=== PATIENT | male | born 1960 | race Caucasian/White ===

== ENCOUNTER 2023-01-13 16:29 | Emergency (ER) | payer MEDICARE, OTHER ==
[~2023-01-13] VITALS: Ht 175 cm; Wt 86.0 kg
[2023-01-13 16:36] VITALS: BP 143/91
--- NOTE | 2023-01-13 17:01 | ED Upper Extremity ---
General Chief Complaint: Laceration Stated Complaint: LEFT PINKIE FINGER LAC Nursing Triage Note: PT HAS LAC TO 5TH FINGER ON L HAND FROM CUTTING SCREENS FOR WINDOWS. PT HAS LAC BETWEEN 1ST AND 2ND KNUCKLE Source: patient Exam Limitations: no limitations History of Present Illness Date Seen by Provider: January 13, 2023 Time Seen by Provider: 16:45 Initial Comments 62-year-old male presents to the ED with laceration to left posterior pinky b etween distal and proximal joints. States he was trying to cut a screen with a knife when the knife slipped and cut his finger. States the injury occurred approximately 30 minutes prior to arrival. He states his last tetanus was less than 5 years ago. Past medical history includes diabetes, hyperlipidemia, depression. Currently takes metformin, duloxetine, and atorvastatin. Allergies and Home Medications Allergies Coded Allergies: diphenhydramine (Verified Allergy, Unknown, 01/13/23) Patient Home Medication List Home Medication List Reviewed: Yes Review of Systems Constitutional: no symptoms reported Skin: other (laceration) Past Lkznoyk-Wpkgks-Jabwhv Hx Patient Social History Tobacco Use?: No Substance use?: No Alcohol Use?: No Pt feels they are or have been: No Immunizations Up To Date First/Initial COVID19 Vaccinat: YES Second COVID19 Vaccination Timbo: YES Past Medical History Surgery/Hospitalization HX: ELEVATED CHOLESTEROL, L ELBOW. BACK SURG Physical Exam Vital Signs Vital Signs - First Documented 01/13/23 16:36 Temp 36.7 Pulse 100 Resp 18 B/P (MAP) 143/91 (108) Pulse Ox 93 Capillary Refill : Less Than 3 Seconds Height, Weight, BMI Height: '" Weight: lbs. oz. kg; 28.00 BMI Method: General Appearance: WD/WN, no apparent distress Neck: supple, normal inspection Cardiovascular: regular rate, rhythm Respiratory: lungs clear, normal breath sounds, no respiratory distress, no accessory muscle use Neurologic/Psychiatric: alert, normal mood/affect Skin: normal color, warm/dry Progress/Results/Core Measures Results/Orders Vital Signs/I&O 01/13/23 16:36 Temp 36.7 Pulse 100 Resp 18 B/P (MAP) 143/91 (108) Pulse Ox 93 Blood Pressure Mean: 108 Progress Progress Note : Time: 16:59 Progress Note Patient seen and evaluated, resting comfortably in recliner, no acute distress. Laceration repaired with glue. Will place patient in splint to prevent patient from bending finger. Discharge instructions and return precautions provided. Departure Impression Primary Impression: Laceration Disposition: HOME, SELF-CARE Condition: Stable Departure-Patient Inst. Decision time for Depature: 17:00 Referrals: NO,LOCAL PHYSICIAN (PCP/Family) Primary Care Physician Patient Instructions: Laceration Repair With Glue ED Add. Discharge Instructions: Keep the wound clean and dry, you may wash your hand, but do not soak. The glue will eventually come off on its own, do not pick it off. Wear the splint to help remind you not to bend the finger. Monitor for signs of infection including redness, swelling, discolored odorous drainage. Return for signs of infection, or any other new, concerning, or worsening symptoms. All discharge instructions reviewed with patient and/or family. Voiced understanding. MARILU JOSE APRN January 13, 2023 17:01
== END 2023-01-13 17:10 | disposition home or self-care (01) ==
LOC: ER 16:34
DX: S61.217A Laceration without foreign body of left little finger without damage to nail, initial encounter (principal); E11.9 Type 2 diabetes mellitus without complications; E78.5 Hyperlipidemia, unspecified; F32.A Depression, unspecified; Z79.84 Long term (current) use of oral hypoglycemic drugs; Z79.899 Other long term (current) drug therapy; W26.0XXA Contact with knife, initial encounter
CPT/HCPCS: 12001